=== PATIENT | female | born 1940 | race Caucasian/White ===

== ENCOUNTER 2016-12-09 09:01 | Inpatient (IN) | payer MEDICARE, MEDICAID ==
[~2016-12-09] VITALS: Ht 165.1 cm; Wt 72.7 kg
[~2016-12-09 09:01] MED LIST: CIPR500T87 PO; GLIM2TAB2 PO; GLYB2.5T2 PO; HYDR12.58 PO; LISI40TA PO; METF500T4 PO; ONDA4TAB10 PO; OXYC1TAB7 PO; POLY17PO5 PO; SIMV20TA PO; VERA120T5 PO; VERA360C2 PO; WARF2TAB7 PO; WARF2TAB7 PO-COUM
[2016-12-09] MEDS ORDERED: WARF2TAB7 PO (09:44)
[2016-12-09] MEDS ORDERED: WARF4TAB7 PO (09:44)
[2016-12-09] MEDS ORDERED: VERA120T5 PO (09:48)
[2016-12-09] MEDS ORDERED: SODIUM CHLORIDE 0.9% 1,000ML IVBOLUS ONE (10:00)
[2016-12-09] MEDS ORDERED: SODIUM CHLORIDE FLUSH 10ML SYR IVF ONE (10:00)
[2016-12-09 10:33] LABS: ASPARTATE AMINO TRANSFERASE 16 U/L (15-37); BLOOD UREA NITROGEN 33 mg/dL (7-18)
[2016-12-09 10:38] LABS: IS PT STATUS REG ER OR PRE ER? YES
[2016-12-09] MEDS ORDERED: CEFDINIR 300 MG CAPSULE PO ONE (12:00)
[2016-12-09] MEDS ORDERED: ACETAMINOPHEN 325 MG TABLET PO PRN (14:00)
[2016-12-09] MEDS ORDERED: ONDANSETRON 2MG/ML, 2ML IVPush PRN (14:00)
[2016-12-09] MEDS ORDERED: morphine SULFATE 10 MG/ML, 1ML IVPush PRN (14:00)
[2016-12-09] MEDS: CEFTRIAXONE 1,000 MG in SODIUM CHLORIDE 0.9% 50 ML IV SCH (15:01)
[2016-12-09] MEDS ORDERED: ENOXAPARIN 40 MG/0.4 ML SQ SCH (16:00)
[2016-12-09 17:16] VITALS: BP 126/84
[2016-12-09] MEDS: WARFARIN 2 MG TABLET PO-COUM SCH ×2 (17:29→17:36)
[2016-12-09] MEDS: SODIUM CHLORIDE 0.9% 1,000 ML IV SCH (17:38)
[2016-12-09] MEDS: INSULIN ASPART 100 UNITS/ML, PEN SQ-INSULIN SCH ×2 (18:05→21:00)
[2016-12-09 18:56] VITALS: BP 113/68
[2016-12-09] MEDS: TRAZODONE 50MG TABLET PO PRN (21:04)
[2016-12-09] MEDS: GLIMEPIRIDE 1 MG TABLET PO SCH (21:04)
[2016-12-09] MEDS: SIMVASTATIN 20 MG TABLET PO SCH (21:05)
[2016-12-09] MEDS: VERAPAMIL ER 120MG TABLET.ER PO SCH (21:05)
[2016-12-09] MEDS: HYDROcodone/APAP 5/325 TABLET PO PRN (21:05)
[2016-12-09] MEDS: POLYETHYLENE GLYCOL 17 GM PACKET PO PRN (21:20)
[2016-12-10 02:58] VITALS: BP 110/53
[2016-12-10] MEDS: SODIUM CHLORIDE 0.9% 1,000 ML IV SCH ×3 (03:17→23:18)
[2016-12-10] MEDS: HYDROcodone/APAP 5/325 TABLET PO PRN ×4 (03:17→17:54)
[2016-12-10 05:22] LABS: BLOOD UREA NITROGEN 26 mg/dL (7-18)
[2016-12-10 05:25] LABS: ASPARTATE AMINO TRANSFERASE 10 U/L (15-37)
[2016-12-10 06:43] VITALS: BP 120/67
[2016-12-10] MEDS: INSULIN ASPART 100 UNITS/ML, PEN SQ-INSULIN SCH ×4 (07:00→21:42)
[2016-12-10] MEDS ORDERED: WARFARIN 2 MG TABLET PO-COUM SCH (09:00)
[2016-12-10] MEDS: HYDROCHLOROTHIAZIDE 12.5 MG CAPSULE PO SCH (09:46)
[2016-12-10] MEDS: GLIMEPIRIDE 1 MG TABLET PO SCH ×2 (09:46→21:18)
[2016-12-10 12:40] VITALS: BP 124/66
[2016-12-10] MEDS ORDERED: ENOXAPARIN 30 MG/0.3 ML SQ SCH (14:00)
[2016-12-10] MEDS: CEFTRIAXONE 1,000 MG in SODIUM CHLORIDE 0.9% 50 ML IV SCH (14:09)
[2016-12-10] MEDS: WARFARIN 2 MG TABLET PO-COUM SCH (18:13)
[2016-12-10 18:29] VITALS: BP 115/67
[2016-12-10] MEDS: VERAPAMIL ER 120MG TABLET.ER PO SCH (21:18)
[2016-12-10] MEDS: SIMVASTATIN 20 MG TABLET PO SCH (21:18)
[2016-12-10] MEDS: POLYETHYLENE GLYCOL 17 GM PACKET PO PRN (21:42)
[2016-12-10] MEDS: TRAZODONE 50MG TABLET PO PRN (21:42)
[2016-12-11 01:03] VITALS: BP 123/69
[2016-12-11] MEDS: HYDROcodone/APAP 5/325 TABLET PO PRN ×6 (01:09→22:37)
[2016-12-11 06:05] LABS: BLOOD UREA NITROGEN 21 mg/dL (7-18)
[2016-12-11 07:00] VITALS: BP 111/68
[2016-12-11] MEDS: INSULIN ASPART 100 UNITS/ML, PEN SQ-INSULIN SCH ×4 (07:00→20:51)
[2016-12-11] MEDS ORDERED: POLY17PO5 PO (07:41)
[2016-12-11] MEDS: GLIMEPIRIDE 1 MG TABLET PO SCH ×2 (08:23→20:50)
[2016-12-11] MEDS: HYDROCHLOROTHIAZIDE 12.5 MG CAPSULE PO SCH (08:24)
[2016-12-11] MEDS: SODIUM CHLORIDE 0.9% 1,000 ML IV SCH ×2 (08:29→20:49)
[2016-12-11] MEDS: CEFTRIAXONE 1,000 MG in SODIUM CHLORIDE 0.9% 50 ML IV SCH (11:04)
[2016-12-11] MEDS: POLYETHYLENE GLYCOL 17 GM PACKET PO PRN (11:04)
[2016-12-11 13:30] VITALS: BP 130/68
[2016-12-11] MEDS: WARFARIN 2 MG TABLET PO-COUM SCH (17:28)
[2016-12-11 18:23] VITALS: BP 121/72
[2016-12-11] MEDS: TRAZODONE 50MG TABLET PO PRN (20:51)
[2016-12-11] MEDS: VERAPAMIL ER 120MG TABLET.ER PO SCH (20:51)
[2016-12-11] MEDS: SIMVASTATIN 20 MG TABLET PO SCH (20:51)
[2016-12-12 01:34] VITALS: BP 129/70
[2016-12-12] MEDS: SODIUM CHLORIDE 0.9% 1,000 ML IV SCH (05:28)
[2016-12-12] MEDS: HYDROcodone/APAP 5/325 TABLET PO PRN ×2 (05:29→10:51)
[2016-12-12 06:04] LABS: BLOOD UREA NITROGEN 17 mg/dL (7-18)
[2016-12-12] MEDS: INSULIN ASPART 100 UNITS/ML, PEN SQ-INSULIN SCH ×2 (07:00→11:32)
[2016-12-12 08:09] VITALS: BP 138/69
[2016-12-12] MEDS: HYDROCHLOROTHIAZIDE 12.5 MG CAPSULE PO SCH (09:04)
[2016-12-12] MEDS: GLIMEPIRIDE 1 MG TABLET PO SCH (09:04)
[2016-12-12] MEDS ORDERED: CEFTRIAXONE 1,000 MG in SODIUM CHLORIDE 0.9% 100 ML IV SCH (09:08)
== END 2016-12-12 12:36 | disposition home or self-care (01) | DRG 871 ==
LOC: ED 09:59 → EDIP 12:48 → 3NE 15:22
PROVIDERS: ATTEND Internal Medicine
DX: A41.9 Sepsis, unspecified organism (principal); G93.40 Encephalopathy, unspecified; N17.0 Acute kidney failure with tubular necrosis; E43 Unspecified severe protein-calorie malnutrition; N39.0 Urinary tract infection, site not specified; D68.69 Other thrombophilia; E11.9 Type 2 diabetes mellitus without complications; E78.5 Hyperlipidemia, unspecified; I11.0 Hypertensive heart disease with heart failure; I48.2 Chronic atrial fibrillation; I50.9 Heart failure, unspecified; Z96.641 Presence of right artificial hip joint; K57.90 Diverticulosis of intestine, part unspecified, without perforation or abscess without bleeding; F41.9 Anxiety disorder, unspecified; Z68.26 Body mass index [BMI] 26.0-26.9, adult; Z79.01 Long term (current) use of anticoagulants; Z88.0 Allergy status to penicillin; Z88.2 Allergy status to sulfonamides; Z91.018 Allergy to other foods
CPT/HCPCS: 36415; 71010; 80048; 80053; 81001; 82962; 83036; 83605; 83735; 84100; 84484; 85025; 85610; 87040; 87086; 93005; 96360; 96361; J0696; J1815; J2270; J7030